=== PATIENT | female | born 1995 | race African-American/Black ===

== ENCOUNTER 2018-09-06 20:49 | Emergency (ER) | payer BC ==
[2018-09-06] MEDS ORDERED: ONDANSETRON HCL INJ/PF 4 MG/2 ML SDV IV ONE (21:09)
[2018-09-06] MEDS ORDERED: NORMAL SALINE 1000 ML 1,000 ML IV ONE (21:09)
[2018-09-06] MEDS ORDERED: ONDANSETRON HCL INJ/PF 4 MG/2 ML SDV ONE (23:33)
[2018-09-06 23:47] LABS: ABSOLUTE LYMPHOCYTES (AUTO) 2.2 10^3/uL (0.5-4.7); ABSOLUTE MONOCYTES (AUTO) 0.6 10^3/uL (0.1-1.4); ABSOLUTE NEUT (AUTO) 8.4 10^3/uL (1.7-8.2); BASOPHILS % (AUTO) 0.4 % (0-2); HEMATOCRIT 36.8 % (36.0-47.0); HEMOGLOBIN 12.3 g/dL (12.0-15.5); LYMPHOCYTES % (AUTO) 19.7 % (13-45); MEAN CORPUSCULAR HEMOGLOBIN 27.9 pg (27.0-33.4); MEAN CORPUSCULAR HGB CONC 33.4 g/dL (32.0-36.0); MEAN CORPUSCULAR VOLUME 84 fl (80-97); MONOCYTES % (AUTO) 5.1 % (3-13); PLATELET COUNT 301 10^3/uL (150-450); SEGMENTED NEUTROPHILS % (AUTO) 74.8 % (42-78); TOTAL CELLS COUNTED % (AUTO) 100 %; WHITE BLOOD COUNT 11.2 10^3/uL (4.0-10.5)
[2018-09-07 00:12] LABS: ALANINE AMINOTRANSFERASE 19 U/L (9-52); ALBUMIN 4.6 g/dL (3.5-5.0); ALKALINE PHOSPHATASE 68 U/L (38-126); ANION GAP 10 (5-19); ASPARTATE AMINO TRANSFERASE 28 U/L (14-36); BILIRUBIN,DIRECT 0.2 mg/dL (0.0-0.4); BILIRUBIN,TOTAL 0.9 mg/dL (0.2-1.3); BLOOD UREA NITROGEN 17 mg/dL (7-20); CALCIUM 10.2 mg/dL (8.4-10.2); CARBON DIOXIDE 21 mmol/L (22-30); CHLORIDE 105 mmol/L (98-107); GLUCOSE 89 mg/dL (75-110); POTASSIUM 4.1 mmol/L (3.6-5.0); SODIUM 136.4 mmol/L (137-145); TOTAL PROTEIN 8.2 g/dL (6.3-8.2)
[2018-09-07 00:44] LABS: APPEARANCE,URINE SLIGHTLY-CLOUDY; BILIRUBIN,URINE NEGATIVE (NEGATIVE); COLOR,URINE YELLOW; GLUCOSE, URINE NEGATIVE (NEGATIVE); KETONES,URINE 80 mg/dL (NEGATIVE); LEUKOCYTE ESTERASE,URINE NEGATIVE (NEGATIVE); NITRITE,URINE POSITIVE (NEGATIVE); PROTEIN,URINE NEGATIVE (NEGATIVE); URINE SPECIFIC GRAVITY 1.028; UROBILINOGEN,URINE NEGATIVE mg/dL (<2.0)
[2018-09-07] MEDS ORDERED: ONDANSETRON ODT 4 MG TAB (6 TAB/ER DISP) PO PRN (01:01)
--- NOTE | 2018-09-07 01:02 | ER Document Report ---
ED General - General Chief Complaint: Nausea/Vomiting Stated Complaint: VOMITING Time Seen by Provider: 09/06/18 23:30 Notes: The patient is a 22-year-old female without chronic medical problems who presents with approximately 24 hours of persistent nausea and vomiting. Patient states that her symptoms started approximately 2-3 hours after eating a hot dog at [employer]. Symptoms came on abruptly and have been constant since that time. States that she has not been able to tolerate your water at home. She has not had associated diarrhea. Nothing is been noted to improve or worsen her symptoms. She notes some generalized abdominal cramping associated with the episodes of vomiting but denies any ongoing abdominal pain at this time. She also notes that she is currently on her menstrual cycle. Denies dysuria. No history of abdominal surgeries. Denies a history of similar symptoms in the past. Has not seen her primary care physician regarding today's concerns. TRAVEL OUTSIDE OF THE [place] IN LAST 30 DAYS: No - Related Data Allergies/Adverse Reactions: No Known Allergies Allergy (Verified 09/07/18 00:26) Past Medical History - General Information source: Patient - Social History Smoking Status: Current Every Day Smoker Frequency of alcohol use: None Drug Abuse: None Lives with: Friend Family History: Reviewed & Not Pertinent Patient has suicidal ideation: No Patient has homicidal ideation: No Renal/ Medical History: Denies: Hx Peritoneal Dialysis Review of Systems - Review of Systems Notes: Constitutional: Negative for fever. HENT: Negative for sore throat. Eyes: Negative for visual changes. Cardiovascular: Negative for chest pain. Respiratory: Negative for shortness of breath. Gastrointestinal: Positive for nausea and vomiting Genitourinary: Negative for dysuria. Musculoskeletal: Negative for back pain. Skin: Negative for rash. Neurological: Negative for headaches, weakness or numbness. 10 point ROS negative except as marked above and in HPI. Physical Exam - Vital signs Vitals: Temp Pulse Resp BP Pulse Ox 98.6 F 62 16 109/62 100 09/06/18 20:58 09/06/18 20:58 09/06/18 20:58 09/06/18 20:58 09/06/18 20:58 Interpretation: Normal Notes: PHYSICAL EXAMINATION: GENERAL: Well-appearing, well-nourished and in no acute distress. HEAD: Atraumatic, normocephalic. EYES: Pupils equal round and reactive to light, extraocular movements intact, sclera anicteric, conjunctiva are normal. ENT: nares patent, oropharynx clear without exudates. Moist mucous membranes. NECK: Normal range of motion, supple without lymphadenopathy LUNGS: Breath sounds clear to auscultation bilaterally and equal. No wheezes rales or rhonchi. HEART: Regular rate and rhythm without murmurs ABDOMEN: Soft, nontender, normoactive bowel sounds. No guarding, no rebound. No masses appreciated. EXTREMITIES: Normal range of motion, no pitting or edema. No cyanosis. NEUROLOGICAL: No focal neurological deficits. Moves all extremities spontaneously and on command. PSYCH: Normal mood, normal affect. SKIN: Warm, Dry, normal turgor, no rashes or lesions noted. Course - Re-evaluation Re-evalutation: 09/07/18 01:01 Presentation of an overall well-appearing patient in no acute distress with complaints of nausea, and vomiting. Patient is also on her menstrual cycle. This discharge several hours after eating a corn dog at [facility]. Suspect likely foodborne contamination. Patient has no abdominal tenderness on exam and specifically no tenderness in the RLQ, LLQ, RUQ. Overall well hydrated on exam. Able to tolerate oral intake here in the emergency department. Low clinical suspicion for any acute life-threatening etiology based on exam and history including acute cholecystitis, SBO, appendicitis, nephrolithiasis, or pylonephritis. CMP without evidence of acute hepatitis or significant d ehydration. Patient is not . At this time will discharge with return precautions and follow-up recommendations. Verbal discharge instructions given a the bedside and opportunity for questions given. Medication warnings reviewed. Patient is in agreement with this plan and has verbalized understanding of return precautions and the need for primary care follow-up in the next 24-72 hours. - Vital Signs Vital signs: Temp Pulse Resp BP Pulse Ox 98.6 F 62 16 109/62 100 09/06/18 20:58 09/06/18 20:58 09/06/18 20:58 09/06/18 20:58 09/06/18 20:58 - Laboratory Result Diagrams: 09/06/18 23:19 09/06/18 23:19 Laboratory results interpreted by me: 09/06/18 09/06/18 09/07/18 23:19 23:19 00:19 WBC 11.2 H Absolute Neutrophils 8.4 H Sodium 136.4 L Carbon Dioxide 21 L Urine Ketones 80 H Urine Blood MODERATE H Urine Nitrite POSITIVE H Urine Ascorbic Acid 20 H Discharge - Discharge Clinical Impression: Nausea and vomiting Qualifiers: Vomiting type: unspecified Vomiting Intractability: non-intractable Qualified Code(s): R11.2 - Nausea with vomiting, unspecified Condition: Good Disposition: HOME, SELF-CARE Additional Instructions: You have been seen in the Emergency Department (ED) today for nausea and vomiting. Your work up today has not shown a clear cause for your symptoms. You have been prescribed Zofran; please use as prescribed as needed for your nausea. Follow up with your doctor as soon as possible regarding today's emergent visit and your symptoms of nausea. Return to the Emergency Department (ED) if you develop abdominal pain, bloody vomiting, bloody diarrhea, if you are unable to tolerate fluids due to vomiting, or if you develop other symptoms that concern you.
[2018-09-07 03:21] VITALS: BP 125/85
== END 2018-09-07 01:15 | disposition home or self-care (01) ==
LOC: ER 20:49
DX: R11.2 Nausea with vomiting, unspecified (principal); R10.84 Generalized abdominal pain; F17.200 Nicotine dependence, unspecified, uncomplicated
CPT/HCPCS: 99284; 96361; 96374; 36415; 83690; 85025; 81025; 80053; 81001; J2405; J7030

== ENCOUNTER 2019-12-20 19:17 | Emergency (ER) | payer BC ==
[2019-12-20 19:31] VITALS: BP 119/69
[2019-12-20] MEDS ORDERED: ACETAMINOPHEN 325 MG TABLET PO ONE (19:54)
--- NOTE | 2019-12-20 19:55 | ER Document Report ---
HPI - HPI Patient complains to provider of: Urinary symptoms Time Seen by Provider: 12/20/19 19:51 Pain Level: 4 Context: 24-year-old female with no previous medical problems presents to the emergency room complaining of dysuria, frequency, and foul-smelling odor for the past 2 weeks. Patient states she has been taking [id number] Azo without relief. Now complaining of some bilateral flank pain for the past 2 days. Unable to see PCP until the . No history of recurrent UTIs. Denies any nausea, vomiting, no vaginal discharge. Associated Symptoms: None Exacerbated by: Other - Urination Relieved by: Denies Similar symptoms previously: No Recently seen / treated by doctor: No - ROS Systems Reviewed and Negative: Yes All other systems reviewed and negative - CONSTITUTIONAL Constitutional: DENIES: Fever, Chills - RESPIRATORY Respiratory: DENIES: Trouble Breathing - GASTROINTESTINAL Gastrointestinal: DENIES: Abdominal Pain - URINARY Urinary: REPORTS: Dysuria, Urgency, Frequency - REPRODUCTIVE Reproductive: DENIES: : - MUSCULOSKELETAL Musculoskeletal: REPORTS: Back Pain - DERM Skin Color: Normal Skin Problems: None Past Medical History - General Information source: Patient - Social History Smoking Status: Never Smoker Frequency of alcohol use: None Drug Abuse: None Family History: Reviewed & Not Pertinent Patient has homicidal ideation: No Renal/ Medical History: Denies: Hx Peritoneal Dialysis Vertical Provider Document - CONSTITUTIONAL Agree With Documented VS: Yes Exam Limitations: No Limitations Notes: VITAL SIGNS: Within normal limits. GENERAL: No acute distress, non-toxic appearance. HEAD: Normal with no signs of head trauma. EYES: PERRLA, EOMI, conjunctiva normal, no discharge. EARS: Hearing grossly intact. NOSE: Normal. THROAT: Oropharynx is normal. NECK: Normal range of motion, no tenderness, supple, no lymphadenopathy, No adenopathy, no JVD. CHEST: Clear breath sounds bilaterally. No wheezes, rales, or rhonchi. CARDIAC: Regular rate and rhythm. S1 and S2, without murmurs, gallops, or rubs. VASCULAR: No Edema. Peripheral pulses normal and equal in all extremities. ABDOMEN: Normal and soft with no tenderness, no masses or pulsatile masses. No guarding, no rebound, no organomegaly. GASTROINTESTINAL: Bowel sounds normal GENITOURINARY: Normal, No tenderness LYMPATHTIC: No lymphadenopathy noted. MUSCULOSKELETAL: Good range of motion of all major joints. Extremities without clubbing, cyanosis or edema. NEUROLOGICAL: Alert and oriented x 3. No focal sensory or strength deficits. Speech normal. Follows commands appropriately. PSYCHIATRIC: Normal Affect, judgement and mood. SKIN: Normal appearance with no rashes or lesions. - INFECTION CONTROL TRAVEL OUTSIDE OF THE [place] IN LAST 30 DAYS: No Course - Re-evaluation Re-evalutation: 12/20/19 20:58 Reviewed diagnosis with patient. Counseled to take antibiotics as prescribed. Outpatient follow-up with primary care physician if not proving in 2 to 3 days. Patient was given strict return to the emergency room guidelines. Return for any new or worsening symptoms. All questions were answered. Patient verbalized understanding and agrees with plan of care. - Vital Signs Vital signs: Temp Pulse Resp BP Pulse Ox 99.0 F 70 16 119/69 99 12/20/19 19:48 12/20/19 19:29 12/20/19 19:29 12/20/19 19:29 12/20/19 19:29 Discharge - Discharge Clinical Impression: UTI (urinary tract infection) Qualifiers: Urinary tract infection type: site unspecified Hematuria presence: without hematuria Qualified Code(s): N39.0 - Urinary tract infection, site not specified Condition: Stable Disposition: HOME, SELF-CARE Instructions: Urinary Tract Infection ([facility]), Nitrofurantoin ([facility]) Additional Instructions: Your urine shows findings consistent with a urinary tract infection. Please take all the antibiotics as directed even if your symptoms have improved. Please follow-up with your primary care physician as needed. Return to emergency room if you develop fever >101F, persistent vomiting, become lethargic, have severe pain in your sides, or any other symptoms that are concerning to you. Prescriptions: Nitrofurantoin Monohyd/M-Cryst [Macrobid 100 mg Capsule] 100 mg PO BID 7 Days #14 cap
[2019-12-20 20:44] LABS: APPEARANCE,URINE SLIGHTLY-CLOUDY; BILIRUBIN,URINE NEGATIVE (NEGATIVE); COLOR,URINE YELLOW; GLUCOSE, URINE NEGATIVE (NEGATIVE); KETONES,URINE NEGATIVE (NEGATIVE); LEUKOCYTE ESTERASE,URINE TRACE (NEGATIVE); NITRITE,URINE NEGATIVE (NEGATIVE); PROTEIN,URINE NEGATIVE (NEGATIVE); UROBILINOGEN,URINE NEGATIVE mg/dL (<2.0)
== END 2019-12-20 21:22 | disposition home or self-care (01) ==
LOC: ER 19:17
DX: N39.0 Urinary tract infection, site not specified (principal)
CPT/HCPCS: 81001; 81025; 99283

== ENCOUNTER 2020-01-19 11:51 | Emergency (ER) | payer BC ==
--- NOTE | 2020-01-19 12:20 | ER Document Report ---
ED Medical Screen (RME) - General Stated Complaint: ABDOMINAL PAIN Time Seen by Provider: 01/19/20 12:08 Primary Care Provider: GERHARD BALDERAS MD [Primary Care Provider] - Follow up as needed TRAVEL OUTSIDE OF THE [place] IN LAST 30 DAYS: No - HPI Notes: 01/19/20 12:17 24-year-old female presents emergency room with complaints of left lower quadrant, left pelvic and left flank pain that started about a month ago, pain comes and goes in waves. Patient states she feels like it is worse after eating and drinking, states the pain is only in her left lower quadrant area. She was seen by her HIGH VALUE ASSOCIATE for annual exam and they talked about the possibility of endometriosis, she states she has not heard anything back from her HIGH VALUE ASSOCIATE. Last menstrual cycle was 12/28/2019. Patient was seen on December 17 for similar issues, was diagnosed with a UTI, she states she finished a course of Macrobid. Reports her symptoms have become progressively worse. Patient not had any diagnostic imaging for this issue. States she had her Nexplanon removed recently, was on oral control. Denies any fevers chills, chest pain, shortness of breath. I have greeted and performed a rapid initial assessment of this patient. A comprehensive ED assessment and evaluation of the patient, analysis of test results and completion of the medical decision making process will be conducted by additional ED providers. PHYSICAL EXAMINATION: GENERAL: Well-appearing, well-nourished and in no acute distress. CV: s1, s2 regular LUNGS: No respiratory distress abd: L CVA tenderness, LLQ abd pain. - Related Data Allergies/Adverse Reactions: No Known Allergies Allergy (Verified 12/20/19 19:48) Past Medical History Renal/ Medical History: Denies: Hx Peritoneal Dialysis Physical Exam - Vital signs Vitals: Temp Pulse Resp BP Pulse Ox 98.8 F 91 16 121/80 100 01/19/20 11:55 01/19/20 11:55 01/19/20 11:55 01/19/20 11:55 01/19/20 11:55 Course - Vital Signs Vital signs: Temp Pulse Resp BP Pulse Ox 98.8 F 91 16 121/80 100 01/19/20 11:55 01/19/20 11:55 01/19/20 11:55 01/19/20 11:55 01/19/20 11:55 Doctor's Discharge - Discharge Referrals: GERHARD BALDERAS MD [Primary Care Provider] - Follow up as needed
[2020-01-19 12:45] LABS: ABSOLUTE LYMPHOCYTES (AUTO) 2.3 10^3/uL (0.5-4.7); ABSOLUTE MONOCYTES (AUTO) 0.4 10^3/uL (0.1-1.4); ABSOLUTE NEUT (AUTO) 2.6 10^3/uL (1.7-8.2); BASOPHILS % (AUTO) 0.9 % (0-2); EOSINOPHILS % (AUTO) 0.5 % (0-6); HEMATOCRIT 38.6 % (36.0-47.0); HEMOGLOBIN 12.8 g/dL (12.0-15.5); LYMPHOCYTES % (AUTO) 42.3 % (13-45); MEAN CORPUSCULAR HEMOGLOBIN 28.3 pg (27.0-33.4); MEAN CORPUSCULAR HGB CONC 33.3 g/dL (32.0-36.0); MEAN CORPUSCULAR VOLUME 85 fl (80-97); MONOCYTES % (AUTO) 7.6 % (3-13); PLATELET COUNT 259 10^3/uL (150-450); RED BLOOD COUNT 4.53 10^6/uL (3.72-5.28); RED CELL DISTRIBUTION WIDTH 13.5 % (11.5-14.0); SEGMENTED NEUTROPHILS % (AUTO) 48.7 % (42-78); TOTAL CELLS COUNTED % (AUTO) 100 %; WHITE BLOOD COUNT 5.4 10^3/uL (4.0-10.5)
[2020-01-19 12:53] LABS: APPEARANCE,URINE CLEAR; BILIRUBIN,URINE NEGATIVE (NEGATIVE); COLOR,URINE YELLOW; GLUCOSE, URINE NEGATIVE (NEGATIVE); KETONES,URINE TRACE mg/dL (NEGATIVE); LEUKOCYTE ESTERASE,URINE NEGATIVE (NEGATIVE); NITRITE,URINE NEGATIVE (NEGATIVE); PROTEIN,URINE NEGATIVE (NEGATIVE); URINE SPECIFIC GRAVITY 1.019; UROBILINOGEN,URINE NEGATIVE mg/dL (<2.0)
[2020-01-19 13:07] LABS: ALBUMIN 4.6 g/dL (3.5-5.0); ALKALINE PHOSPHATASE 44 U/L (38-126); ANION GAP 6 (5-19); ASPARTATE AMINO TRANSFERASE 25 U/L (14-36); BILIRUBIN,TOTAL 0.9 mg/dL (0.2-1.3); BLOOD UREA NITROGEN 14 mg/dL (7-20); CALCIUM 9.8 mg/dL (8.4-10.2); CARBON DIOXIDE 24 mmol/L (22-30); CHLORIDE 105 mmol/L (98-107); GLUCOSE 97 mg/dL (75-110); POTASSIUM 4.5 mmol/L (3.6-5.0); TOTAL PROTEIN 8.4 g/dL (6.3-8.2)
--- NOTE | 2020-01-19 14:11 | RADIOLOGY REPORT (SQ) ---
EXAM DESCRIPTION: U/S NON-OB PELVIS TV W/O DOP IMAGES COMPLETED DATE/TIME: 01/19/2020 1:04 pm REASON FOR STUDY: LLQ, Left pelvic pain x 1m COMPARISON: None. TECHNIQUE: Dynamic and static grayscale images acquired of the pelvis via transvaginal approach and recorded on PACS. Additional selected color Doppler and spectral images recorded. LIMITATIONS: None. FINDINGS: UTERUS: Contour normal. No mass. ENDOMETRIAL STRIPE: No focal or generalized thickening. No masses. CERVIX: No nabothian cysts. RIGHT OVARY AND DOPPLER: Normal size. No worrisome masses. Normal arterial vascular flow without evid ence for torsion. LEFT OVARY AND DOPPLER: Normal size. No worrisome masses. Normal arterial vascular flow without evide nce for torsion. FREE FLUID: None noted. OTHER: No other significant finding. IMPRESSION: NORMAL TRANSVAGINAL PELVIC ULTRASOUND. TECHNICAL DOCUMENTATION: JOB ID: [id number] 2010 [employer]- All Rights Reserved Rev Reading location - IP/workstation name: [email or web address]
--- NOTE | 2020-01-19 14:13 | RADIOLOGY REPORT (SQ) ---
EXAM DESCRIPTION: CT ABD/PELVIS WITH IV ONLY IMAGES COMPLETED DATE/TIME: 01/19/2020 2:01 pm REASON FOR STUDY: LLQ, left pelvic pain x 1m COMPARISON: None. TECHNIQUE: CT scan of the abdomen and pelvis performed using helical scanning technique with dynamic intravenous contrast injection. No oral contrast. Images reviewed with lung, soft tissue, and bone windows. Reconstructed coronal and sagittal MPR images reviewed. Delayed images for evaluation of the urinary system also acquired. All images stored on PACS. All CT scanners at this facility use dose modulation, iterative reconstruction, and/or weight based d osing when appropriate to reduce radiation dose to as low as reasonably achievable (ALARA). [facility]: Dose Right [facility]: CareDose [facility]: Dose Right [facility]: Teradose 4D [facility]: [facility] [place] CONTRAST TYPE AND DOSE: contrast/concentration: Isovue 350.00 mmol/ml; Total Contrast Delivered: 62. 0 ml; Total Saline Delivered: 65.0 ml RENAL FUNCTION: None required. The patient is less than 50 years old. RADIATION DOSE: CT Rad equipment meets quality standard of care and radiation dose reduction techniq ues were employed. CTDIvol: 5.0 - 5.7 mGy. DLP: 514 mGy-cm.. LIMITATIONS: None. FINDINGS: LOWER CHEST: No significant findings. No nodules or infiltrates. LIVER: Normal size. No masses. No dilated ducts. SPLEEN: Normal size. No focal lesions. PANCREAS: No masses. No significant calcifications. No adjacent inflammation or peripancreatic fluid collections. Pancreatic duct not dilated. GALLBLADDER: No identified stones by CT criteria. No inflammatory changes to suggest cholecystitis. ADRENAL GLANDS: No significant masses or asymmetry. RIGHT KIDNEY AND URETER: No solid masses. No significant calcifications. No hydronephrosis or hyd roureter. LEFT KIDNEY AND URETER: No solid masses. No significant calcifications. No hydronephrosis or hydr oureter. AORTA AND VESSELS: No aneurysm. No dissection. Renal arteries, SMA, celiac without stenosis. RETROPERITONEUM: No retroperitoneal adenopathy, hemorrhage or masses. BOWEL AND PERITONEAL CAVITY: No masses or inflammatory changes. No free fluid or peritoneal masses. APPENDIX: Normal. PELVIS: 3 cm cyst left ovary. This was not seen on ultrasound of the same date. ABDOMINAL WALL: No masses. No hernias. BONES: No significant or acute findings. OTHER: No other significant finding. IMPRESSION: 3 cm cyst left ovary. TECHNICAL DOCUMENTATION: JOB ID: [id number] Quality ID # [id number]: Final reports with documentation of one or more dose reduction techniques (e.g., Au tomated exposure control, adjustment of the mA and/or kV according to patient size, use of iterative reconstruction technique) 2010 [employer]- All Rights Reserved Reading location - IP/workstation name: [email or web address]
--- NOTE | 2020-01-19 17:37 | ER Document Report ---
ED GI/ - General Chief Complaint: Abdominal Pain Stated Complaint: ABDOMINAL PAIN Time Seen by Provider: 01/19/20 12:08 Primary Care Provider: GERHARD OLIVER MD [Primary Care Provider] - Follow up as needed Mode of Arrival: Ambulatory Information source: Patient Notes: Otherwise healthy 24-year-old female presents emergency department chief complaint of left lower quadrant abdominal pain that has been going on for 1 month. She states the pain is intermittent and is worse around the time of her menstrual cycle. She denies any fevers, chills, nausea, vomiting or diarrhea. She denies any abnormal vaginal discharge. TRAVEL OUTSIDE OF THE [place] IN LAST 30 DAYS: No - Related Data Allergies/Adverse Reactions: No Known Allergies Allergy (Verified 12/20/19 19:48) Past Medical History - General Information source: Patient - Social History Smoking Status: Never Smoker Frequency of alcohol use: None Drug Abuse: None Family History: Reviewed & Not Pertinent - Medical History Medical History: Negative Renal/ Medical History: Denies: Hx Peritoneal Dialysis Surgical Hx: Negative - Immunizations Immunizations up to date: Yes Review of Systems - Review of Systems Gastrointestinal: Abdominal pain -: Yes All other systems reviewed and negative Physical Exam - Vital signs Vitals: Temp 98.8 F 01/19/20 11:51 - Notes Notes: PHYSICAL EXAMINATION: GENERAL: Well-appearing, well-nourished and in no acute distress. HEAD: Atraumatic, normocephalic. EYES: Pupils equal round and reactive to light, extraocular movements intact, conjunctiva are normal. ENT: Nares patent, oropharynx clear without exudates. Moist mucous membranes. NECK: Normal range of motion, supple without lymphadenopathy LUNGS: Breath sounds clear to auscultation bilaterally and equal. No wheezes rales or rhonchi. HEART: Regular rate and rhythm without murmurs ABDOMEN: Soft, nondistended abdomen. Tenderness to palpation left lower quadrant. No guarding, no rebound. No masses appreciated. Female : No CVA tenderness. Musculoskeletal: Normal range of motion, no pitting or edema. No cyanosis. NEUROLOGICAL: Cranial nerves grossly intact. Normal speech, normal gait. Normal sensory, motor exams PSYCH: Normal mood, normal affect. SKIN: Warm, Dry, normal turgor, no rashes or lesions noted. Course - Re-evaluation Re-evalutation: Laboratory 01/19/20 01/19/20 01/19/20 12:25 12:25 12:25 WBC 5.4 RBC 4.53 Hgb 12.8 Hct 38.6 MCV 85 MCH 28.3 MCHC 33.3 RDW 13.5 Plt Count 259 Lymph % (Auto) 42.3 [place] % (Auto) 7.6 Eos % (Auto) 0.5 Baso % (Auto) 0.9 Absolute Neuts (auto) 2.6 Absolute Lymphs (auto) 2.3 Absolute Monos (auto) 0.4 Absolute Eos (auto) 0.0 Absolute Basos (auto) 0.0 Seg Neutrophils % 48.7 Sodium 135.0 L Potassium 4.5 Chloride 105 Carbon Dioxide 24 Anion Gap 6 BUN 14 Creatinine 0.85 Est GFR ( Amer) > 60 Est GFR (MDRD) Non-Af > 60 Glucose 97 Calcium 9.8 Total Bilirubin 0.9 Direct Bilirubin 0.0 Neonat Total Bilirubin Not Reportable Neonat Direct Bilirubin Not Reportable Neonat Indirect Bili Not Reportable AST 25 ALT 11 Alkaline Phosphatase 44 Total Protein 8.4 H Albumin 4.6 Lipase 86.8 Urine Color YELLOW Urine Appearance CLEAR Urine pH 7.0 Ur Specific [place] 1.019 Urine Protein NEGATIVE Urine Glucose (UA) NEGATIVE Urine Ketones TRACE H Urine Blood SMALL H Urine Nitrite NEGATIVE Urine Bilirubin NEGATIVE Urine Urobilinogen NEGATIVE Ur Leukocyte Esterase NEGATIVE Urine WBC (Auto) 3 Urine RBC (Auto) 6 Urine Bacteria (Auto) TRACE Squamous Epi Cells Auto 2 Urine Mucus (Auto) RARE Urine Ascorbic Acid NEGATIVE Urine HCG, Qual NEGATIVE Abdomen/Pelvis CT 01/19/20 12:15 IMPRESSION: 3 cm cyst left ovary. Transvaginal US 01/19/20 12:15 IMPRESSION: NORMAL TRANSVAGINAL PELVIC ULTRASOUND. Lab work to include blood and urine are unremarkable. Transvaginal ultrasound was normal. Abdomen pelvis CT shows a 3 mm cyst in the left ovary. There was normal blood flow to both ovaries, no evidence of ovarian torsion. Patient will be discharged home with pain medication, nausea medication and will be instructed to take ibuprofen. Patient is in agreement with this plan. Considering patient has had this pain for 1 month I did advise her to follow-up with gynecology. She states that she sees Dr. Oliver and she will call him to make an appointment. - Vital Signs Vital signs: Temp Pulse Resp BP Pulse Ox 97.8 F 66 18 108/64 100 01/19/20 17:36 01/19/20 17:36 01/19/20 17:36 01/19/20 17:36 01/19/20 17:36 - Laboratory Result Diagrams: 01/19/20 12:25 01/19/20 12:25 Laboratory results interpreted by me: 01/19/20 01/19/20 12:25 12:25 Sodium 135.0 L Total Protein 8.4 H Urine Ketones TRACE H Urine Blood SMALL H Discharge - Discharge Clinical Impression: Left ovarian cyst Condition: Stable Disposition: HOME, SELF-CARE Additional Instructions: Ovarian Cyst Your examination shows the presence of an ovarian cyst. This is a ball of fluid attached to the ovary. Ovarian cysts in women of child-bearing age are usually innocent. However, the cyst may cause pain when it grows or bursts. An innocent ovarian cyst will usually go away by itself. When the cyst becomes painful, you should rest. Pain medication may be required. Some women find a hot water bottle soothing. The pain usually resolves within one or two days. After menopause, an ovarian cyst may mean a tumor, and requires more aggressive evaluation -- usually surgery is recommended to remove or biopsy the cyst. A very large cyst requires evaluation at any age. Most cysts (even the innocent ones) require follow-up examination. Call the doctor or return at any time if the pain increases significantly, if you become faint, or if you experience vaginal bleeding. Prescriptions: Hydrocodone/Acetaminophen [[place] 5-325 mg Tablet] 1 tab PO Q6HP PRN #10 tablet PRN Reason: Ondansetron [Zofran Odt 4 mg Tablet] 1 - 2 tab PO Q4H PRN #15 tab.rapdis PRN Reason: For Nausea/Vomiting Forms: Return to Work Referrals: GERHARD OLIVER MD [Primary Care Provider] - Follow up as needed
[2020-01-19 17:39] VITALS: BP 108/64
== END 2020-01-19 17:44 | disposition home or self-care (01) ==
LOC: ER 11:51
DX: N83.202 Unspecified ovarian cyst, left side (principal); R10.32 Left lower quadrant pain; R10.814 Left lower quadrant abdominal tenderness
CPT/HCPCS: 36415; 74177; 76830; 80053; 81001; 81025; 83690; 85025; 99284